=== PATIENT | female | born 1995 | race Caucasian/White ===

== ENCOUNTER 2018-06-15 13:06 | Emergency (ER) | payer OTHER ==
[2018-06-15] MEDS ORDERED: NORMAL SALINE 1000 ML 1,000 ML IV ONE (15:15)
--- NOTE | 2018-06-15 15:15 | ER Document Report ---
ED Medical Screen (RME) - General Chief Complaint: Abdominal Pain Stated Complaint: VOMITING Time Seen by Provider: 06/15/18 15:11 Notes: Patient is a 23-year-old female presents to the emergency department for generalized nausea, vomiting and diarrhea that started on 06/13/2018. Patient states last evening she started with generalized right lower abdominal pain. States she presented to [facility] immediate care who gave her an IM shot of Z ofran at 1245 and told her to come to the emergency room for rule out appendicitis. Patient states her last oral intake was 1800 hrs. last evening. Last menstrual period 05/23/2018. patient is denying dysuria or vaginal discharge.. Past medical history: Hypothyroid, positional tachycardia Medications: None Allergies: None HEART: tachycardic rate and rhythm. No murmur ABDOMEN: Soft, Non-distended. Bowel sounds present in all 4 quadrants. Positive McBurney's point tenderness, no Corral sign noted. no CVA tenderness noted bilaterally. I have greeted and performed a rapid initial assessment of this patient. A comprehensive ED assessment and evaluation of the patient, analysis of test results and completion of the medical decision making process will be conducted by additional ED providers. TRAVEL OUTSIDE OF THE [place] IN LAST 30 DAYS: No - Related Data Allergies/Adverse Reactions: No Known Allergies Allergy (Verified 06/15/18 13:08) Past Medical History - Social History Chew tobacco use (# tins/day): No Frequency of alcohol use: Occasional Drug Abuse: None Renal/ Medical History: Denies: Hx Peritoneal Dialysis Past Surgical History: Reports: Hx Oral Surgery Physical Exam - Vital signs Vitals: Temp Pulse Resp BP Pulse Ox 98.2 F 117 H 14 114/75 100 06/15/18 13:19 06/15/18 13:19 06/15/18 13:19 06/15/18 13:19 06/15/18 13:19 Course - Vital Signs Vital signs: Temp Pulse Resp BP Pulse Ox 98.2 F 117 H 14 114/75 100 06/15/18 13:19 06/15/18 13:19 06/15/18 13:19 06/15/18 13:19 06/15/18 13:19
[2018-06-15 16:34] LABS: ABSOLUTE LYMPHOCYTES (AUTO) 2.9 10^3/uL (0.5-4.7); ABSOLUTE MONOCYTES (AUTO) 0.7 10^3/uL (0.1-1.4); ABSOLUTE NEUT (AUTO) 2.8 10^3/uL (1.7-8.2); BASOPHILS % (AUTO) 0.5 % (0-2); EOSINOPHILS % (AUTO) 0.3 % (0-6); HEMATOCRIT 43.2 % (36.0-47.0); HEMOGLOBIN 14.9 g/dL (12.0-15.5); LYMPHOCYTES % (AUTO) 44.6 % (13-45); MEAN CORPUSCULAR HEMOGLOBIN 29.6 pg (27.0-33.4); MEAN CORPUSCULAR HGB CONC 34.5 g/dL (32.0-36.0); MEAN CORPUSCULAR VOLUME 86 fl (80-97); MONOCYTES % (AUTO) 11.5 % (3-13); PLATELET COUNT 226 10^3/uL (150-450); RED BLOOD COUNT 5.03 10^6/uL (3.72-5.28); SEGMENTED NEUTROPHILS % (AUTO) 43.1 % (42-78); TOTAL CELLS COUNTED % (AUTO) 100 %; WHITE BLOOD COUNT 6.5 10^3/uL (4.0-10.5)
[2018-06-15 16:47] LABS: ALANINE AMINOTRANSFERASE 27 U/L (9-52); ALBUMIN 4.7 g/dL (3.5-5.0); ALKALINE PHOSPHATASE 89 U/L (38-126); ANION GAP 9 (5-19); APPEARANCE,URINE CLOUDY; ASPARTATE AMINO TRANSFERASE 28 U/L (14-36); BILIRUBIN,DIRECT 0.2 mg/dL (0.0-0.4); BILIRUBIN,TOTAL 0.6 mg/dL (0.2-1.3); BILIRUBIN,URINE NEGATIVE (NEGATIVE); BLOOD UREA NITROGEN 5 mg/dL (7-20); CALCIUM 9.6 mg/dL (8.4-10.2); CALCIUM OXALATE CRYSTALS,URINE FEW /HPF; CARBON DIOXIDE 27 mmol/L (22-30); CHLORIDE 102 mmol/L (98-107); COLOR,URINE AMBER; GLUCOSE 91 mg/dL (75-110); GLUCOSE, URINE NEGATIVE (NEGATIVE); KETONES,URINE NEGATIVE (NEGATIVE); LEUKOCYTE ESTERASE,URINE MODERATE (NEGATIVE); LIPASE 35.4 U/L (23-300); NITRITE,URINE NEGATIVE (NEGATIVE); PROTEIN,URINE NEGATIVE (NEGATIVE); TOTAL PROTEIN 7.7 g/dL (6.3-8.2); URINE SPECIFIC GRAVITY 1.025
--- NOTE | 2018-06-15 17:19 | RADIOLOGY REPORT (SQ) ---
EXAM DESCRIPTION: CT ABD/PELVIS WITH IV ONLY COMPLETED DATE/TIME: 06/15/2018 5:05 pm REASON FOR STUDY: RLQ pain COMPARISON: None. TECHNIQUE: CT scan of the abdomen and pelvis performed using helical scanning technique with dynamic intravenous contrast injection. No oral contrast. Images reviewed with lung, soft tissue, and bone windows. Reconstructed coronal and sagittal MPR images reviewed. Delayed images for evaluation of the urinary system also acquired. All images stored on PACS. All CT scanners at this facility use dose modulation, iterative reconstruction, and/or weight based d osing when appropriate to reduce radiation dose to as low as reasonably achievable (ALARA). [facility]: Dose Right [facility]: CareDose [facility]: Dose Right [facility]: Teradose 4D [facility]: [employer] CONTRAST TYPE AND DOSE: contrast/concentration: Isovue 350.00 mg/ml; Total Contrast Delivered: 90.0 ml; Total Saline Delivered: 70.0 ml RENAL FUNCTION: BUN 5 creatinine 0.62. RADIATION DOSE: CT Rad equipment meets quality standard of care and radiation dose reduction techniq ues were employed. CTDIvol: 7.3 - 9.7 mGy. DLP: 972 mGy-cm.. LIMITATIONS: None. FINDINGS: LOWER CHEST: No significant findings. No nodules or infiltrates. LIVER: Normal size. No masses. No dilated ducts. SPLEEN: Normal size. No focal lesions. PANCREAS: No masses. No significant calcifications. No adjacent inflammation or peripancreatic fluid collections. Pancreatic duct not dilated. GALLBLADDER: No identified stones by CT criteria. No inflammatory changes to suggest cholecystitis. ADRENAL GLANDS: No significant masses or asymmetry. RIGHT KIDNEY AND URETER: No solid masses. No significant calcifications. No hydronephrosis or hyd roureter. LEFT KIDNEY AND URETER: No solid masses. No significant calcifications. No hydronephrosis or hydr oureter. AORTA AND VESSELS: No aneurysm. No dissection. Renal arteries, SMA, celiac without stenosis. RETROPERITONEUM: No retroperitoneal adenopathy, hemorrhage or masses. BOWEL AND PERITONEAL CAVITY: No masses or inflammatory changes. No free fluid or peritoneal masses. APPENDIX: Normal. PELVIS: No mass. No free fluid. Normal bladder. ABDOMINAL WALL: No masses. No hernias. BONES: No significant or acute findings. OTHER: No other significant finding. IMPRESSION: NO SIGNIFICANT OR ACUTE FINDING IN THE ABDOMEN OR PELVIS ON CT SCAN WITH IV CONTRAST. TECHNICAL DOCUMENTATION: JOB ID: [id number] Quality ID # [id number]: Final reports with documentation of one or more dose reduction techniques (e.g., Au tomated exposure control, adjustment of the mA and/or kV according to patient size, use of iterative reconstruction technique) 2010 [email or web address]- All Rights Reserved Reading location - IP/workstation name: [email or web address]
--- NOTE | 2018-06-15 17:37 | ER Document Report ---
ED General - General Chief Complaint: Abdominal Pain Stated Complaint: VOMITING Time Seen by Provider: 06/15/18 15:11 Notes: Patient is a 23-year-old female presents to the emergency department for generalized nausea, vomiting and diarrhea that started on 06/13/2018. Patient states last evening she started with generalized right lower abdominal pain. States she presented to [facility] who gave her an IM shot of Zofran at 1245 and told her to come to the emergency room for rule out appendicitis. Patient states her last oral intake was 1800 hrs. last evening. Last menstrual period 05/23/2018. patient is denying dysuria or vaginal discharge.. Past medical history: Hypothyroid, positional tachycardia Medications: None Allergies: None TRAVEL OUTSIDE OF THE [place] IN LAST 30 DAYS: No - Related Data Allergies/Adverse Reactions: No Known Allergies Allergy (Verified 06/15/18 13:08) Past Medical History - General Information source: Patient - Social History Smoking Status: Current Every Day Smoker Chew tobacco use (# tins/day): No Frequency of alcohol use: Occasional Drug Abuse: None Family History: Reviewed & Not Pertinent Patient has suicidal ideation: No Patient has homicidal ideation: No Renal/ Medical History: Denies: Hx Peritoneal Dialysis Past Surgical History: Reports: Hx Oral Surgery Review of Systems - Review of Systems Constitutional: No symptoms reported EENT: No symptoms reported Cardiovascular: No symptoms reported Respiratory: No symptoms reported Gastrointestinal: See HPI Genitourinary: See HPI Female Genitourinary: See HPI Musculoskeletal: No symptoms reported Skin: No symptoms reported Hematologic/Lymphatic: No symptoms reported Neurological/Psychological: No symptoms reported Physical Exam - Vital signs Vitals: Temp Pulse Resp BP Pulse Ox 98.2 F 117 H 14 114/75 100 06/15/18 13:19 06/15/18 13:19 06/15/18 13:19 06/15/18 13:19 06/15/18 13:19 - Notes Notes: GENERAL: Alert, interacts well. No acute distress. HEAD: Normocephalic, atraumatic. EYES: Pupils equal, round, and reactive to light. Extraocular movements intact. ENT: Oral mucosa moist, tongue midline. NECK: Full range of motion. Supple. Trachea midline. LUNGS: Clear to auscultation bilaterally, no wheezes, rales, or rhonchi. No respiratory distress. HEART: Regular rate and rhythm. No murmur ABDOMEN: Soft, Non-distended. Bowel sounds present in all 4 quadrants. No Corral sign noted, positive McBurney's point tenderness. No CVA tenderness noted bilaterally EXTREMITIES: Moves all 4 extremities spontaneously. No edema, normal radial and dorsalis pedis pulses bilaterally. No cyanosis. BACK: no cervical, thoracic, lumbar midline tenderness. No saddle anesthesia, normal distal neurovascular exam. NEUROLOGICAL: Alert and oriented x3. Normal speech. cranial nerves II through XII grossly intact PSYCH: Normal affect, normal mood. SKIN: Warm, dry, normal turgor. No rashes or lesions noted. Course - Re-evaluation Re-evalutation: 06/15/18 17:[address] with IV contrast showed no acute or significant findings in the abdomen or pelvis. Appendix is normal. Patient's labs showed no signs of leukocytosis, no signs of anemia, no signs of electrolyte abnormalities, patient is denying dysuria but due to a possible contaminated urine it was sent for culture. Patient's specific gravity was noted to be elevated. Patient has not vomited since she arrived to the emergency room and states her pain is generally better after fluid resuscitation. Discussed patient's labs and CT results with patient at bedside. Discussed home use of Zofran And following up with primary care provider. Patient voices understanding. She is no longer tachycardic, stable for discharge. - Vital Signs Vital signs: Temp Pulse Resp BP Pulse Ox 98.2 F 117 H 14 114/75 100 06/15/18 13:19 06/15/18 13:19 06/15/18 13:19 06/15/18 13:19 06/15/18 13:19 - Laboratory Result Diagrams: 06/15/18 16:20 06/15/18 16:20 Laboratory results interpreted by me: 06/15/18 06/15/18 16:20 16:20 BUN 5 L Urine Blood SMALL H Urine Urobilinogen 2.0 H Ur Leukocyte Esterase MODERATE H Discharge - Discharge Clinical Impression: Nausea vomiting and diarrhea, Dehydration Abdominal pain Qualifiers: Abdominal location: right lower quadrant Qualified Code(s): R10.31 - Right lower quadrant pain Condition: Stable Disposition: HOME, SELF-CARE Instructions: Antinausea Medication ([facility]), Intravenous (IV) Fluids ([facility]), Vomiting ([facility]) Additional Instructions: As we discussed you have been seen and treated in the emergency department for your generalized right lower abdominal pain, nausea, vomiting, diarrhea. Your CT scan shows no signs of appendicitis and your labs show no signs of overwhelming infection. Please make sure you follow-up with your primary care provider in the next 24-48 hours. Please return to the emergency room for any other concerning symptoms. Prescriptions: Ondansetron [Zofran Odt 4 mg Tablet] 1 - 2 tab PO Q4H PRN #15 tab.rapdis PRN Reason: For Nausea/Vomiting Forms: Return to Work Referrals: ARNAV GUAMAN MD [ACTIVE STAFF] - Follow up as needed
[2018-06-15 17:48] VITALS: BP 103/68
== END 2018-06-15 17:50 | disposition home or self-care (01) ==
LOC: ER 13:06
DX: E86.0 Dehydration (principal); R11.2 Nausea with vomiting, unspecified; R19.7 Diarrhea, unspecified; R10.31 Right lower quadrant pain; E03.9 Hypothyroidism, unspecified; F17.200 Nicotine dependence, unspecified, uncomplicated
CPT/HCPCS: 99284; 96360; 36415; 87086; 83690; 85025; 81025; 80053; 81001; 74177; J7030

== ENCOUNTER 2018-12-18 04:02 | Emergency (ER) | payer OTHER ==
[2018-12-18] MEDS ORDERED: AZITHROMYCIN 250 MG TABLET PO ONE (05:35)
--- NOTE | 2018-12-18 05:58 | ER Document Report ---
ED General - General Chief Complaint: Abdominal Pain Stated Complaint: ABDOMINAL PAIN,VAGINAL BLEEDING Time Seen by Provider: 12/18/18 04:29 Primary Care Provider: [facility] [Provider Group] - Follow up as needed PAULA DANIEL MD [Primary Care Provider] - Follow up as needed Notes: Patient is a G1, P0 23-year-old female who presents emergency department with a chief complaint abdominal pain and vaginal bleeding. She was seen here last night in the emergency department and was told that she had a urinary tract infection, but did not have her results of her gonorrhea and chlamydia. Her chlamydia was positive. Patient was not treated for chlamydia. Patient admits to having an extra person in her relationship. Her is at bedside and was in agreement with having that person in their relationship. When the patient returned home after being seen here in the emergency department she passed a large clot and continued to soak more than 2 pads in 1 hour. She does have some cramping to her mid lower abdomen. Last menstrual cycle was October 19. TRAVEL OUTSIDE OF THE [place] IN LAST 30 DAYS: No - Related Data Allergies/Adverse Reactions: No Known Allergies Allergy (Verified 12/18/18 04:03) Past Medical History - Social History Smoking Status: Unknown if Ever Smoked Family History: Reviewed & Not Pertinent Patient has suicidal ideation: No Patient has homicidal ideation: No Renal/ Medical History: Denies: Hx Peritoneal Dialysis Past Surgical History: Reports: Hx Oral Surgery Review of Systems - Review of Systems Notes: REVIEW OF SYSTEMS: CONSTITUTIONAL : Denies recent illness. Denies recent unintentional weight loss. Denies fever, chills, or sweats. EENT: Denies eye, ear, throat, or mouth pain, discharge, or symptoms. Denies nasal or sinus congestion. CARDIOVASCULAR: Denies chest pain. RESPIRATORY: Denies shortness of breath, cough, congestion, difficulty breathing, or wheezing. GASTROINTESTINAL: Denies nausea, vomiting, and diarrhea. See HPI. denies constipation. GENITOURINARY: Denies difficulty urinating, burning, blood in urine, urgency or frequency. FEMALE GENITOURINARY: See HPI MUSCULOSKELETAL: Denies neck and back pain. Denies joint pain or swelling. SKIN: Denies rash, itchiness, or lesions HEMATOLOGIC : Denies easy bruising or bleeding. LYMPHATIC: Denies swollen, painful, enlarged glands. NEUROLOGICAL: Denies no numbness or tingling denies weakness. Denies headache. Denies altered mental status. Denies alteration in speech. PSYCHIATRIC: Denies stress, anxiety, alteration in sleep patterns, or depression. All other systems reviewed and negative. Physical Exam - Vital signs Vitals: Temp Pulse Resp BP Pulse Ox 98.2 F 75 18 113/58 L 98 12/18/18 04:18 12/18/18 04:18 12/18/18 04:18 12/18/18 04:18 12/18/18 04:18 - Notes Notes: PHYSICAL EXAMINATION: GENERAL: Appears well, healthy, well-nourished, no acute distress. HEAD: Normocephalic, atraumatic. EYES: PERRL, conjunctiva normal, all extraocular movements intact, sclera nonicteric ENT: Moist mucous membranes. NECK: Supple, no noticeable swelling, redness, rash. Normal range of motion. LUNGS: Equal breath sounds bilaterally and clear to auscultation. No wheezes rales or rhonchi. CARDIOVASCULAR: S1-S2, regular rate, regular rhythm. Radial pulses 2+, normal. ABDOMEN: Normoactive bowel sounds. Soft, tender mid lower abdomen, no guarding, no rebound tenderness, and no masses palpated. EXTREMITIES: Normal strength and range of motion, no pitting or edema. No cyanosis. NEUROLOGICAL: Moves all extremities upon command. Strength 5/5 in all extremities. PSYCH: Normal mood, normal affect. SKIN: Warm, dry. No rash, lesions, ulcerations noted. Normal skin turgor. Course - Re-evaluation Re-evalutation: 12/18/18 07:47 Patient was sent for an ultrasound to evaluate if she had a miscarriage. Patient's repeat ultrasound does not show any sac anymore, consistent with a miscarriage. I relayed this information on to the patient. The patient was treated for chlamydia. I advised the that he needs to be treated for chlamydia and they need to let the third-democrat know that she needs to be tested and treated for chlamydia. I also advised that the [place] [facility] [place]. The patient has a [facility]. I will print out the labs and she will bring them to her appointment. Instructions on Tylenol use for pain control were given. Follow-up precautions were given. Verbal discharge instructions were given to the patient. They verbalized understanding. They are stable for discharge. - Vital Signs Vital signs: Temp Pulse Resp BP Pulse Ox 98.0 F 78 18 121/63 98 12/18/18 08:43 12/18/18 08:43 12/18/18 08:43 12/18/18 08:43 12/18/18 08:43 Discharge - Discharge Clinical Impression: Miscarriage, Vaginal bleeding, Chlamydial infection Condition: Stable Disposition: HOME, SELF-CARE Additional Instructions: You were seen today in the emergency department for vaginal bleeding. You had a miscarriage. Please follow-up with your OB at [facility] to you can have your hCG levels redrawn. You are also treated for chlamydia. Make sure your and the other person involved get checked and treated for chlamydia. Do not have sex for the next week and until your partner gets treated. Do not place anything in your vagina. Do not place tampons in your vagina, make sure you use pads. If you have any cramping, you can take Tylenol 1000 mg every 6 hours for your pain. If for some reason you are unable to make your appointment with [facility], you can follow-up with [facility] Referrals: PAULA DANIEL MD [Primary Care Provider] - Follow up as needed [facility] [Provider Group] - Follow up as needed
--- NOTE | 2018-12-18 06:58 | RADIOLOGY REPORT (SQ) ---
EXAM DESCRIPTION: US TRANSVAGINAL COMPLETED DATE/TME: 12/18/2018 05:35 CLINICAL HISTORY: 23 years Female, Vaginal bleeding; passed large clot COMPARISON: 12/17/18 TECHNIQUE: Transvaginal. LIMITATIONS: None. FINDINGS: No intrauterine gestation identified. An intrauterine gestational sac and yolk sac is no longer seen compared with an exam from one day prior suggestive of a gestational loss 9 cm uterus, 1.5 cm thick endometrial stripe, 3.0 cm right ovary, nonvisualized left ovary appear otherwise unremarkable. No free fluid. IMPRESSION: Intrauterine gestation is no longer seen suggestive of gestational loss. Recommend 48 -72 hours laboratory/sonographic confirmation.
[2018-12-18] MEDS ORDERED: ACETAMINOPHEN 325 MG TABLET PO ONE (08:01)
[2018-12-18 09:04] VITALS: BP 121/63
== END 2018-12-18 08:43 | disposition home or self-care (01) ==
LOC: ER 04:02
DX: O03.9 Complete or unspecified spontaneous abortion without complication (principal); O46.90 Antepartum hemorrhage, unspecified, unspecified trimester; O98.319 Other infections with a predominantly sexual mode of transmission complicating pregnancy, unspecified trimester; A56.8 Sexually transmitted chlamydial infection of other sites; O26.899 Other specified pregnancy related conditions, unspecified trimester; R10.30 Lower abdominal pain, unspecified; Z3A.00 Weeks of gestation of pregnancy not specified
CPT/HCPCS: 76817; 99284